=== PATIENT | female | born 1995 | race American Indian/Alaskan Native ===

== ENCOUNTER 2019-03-13 18:24 | Emergency (ER) | payer OTHER ==
[2019-03-13 20:04] VITALS: BP 124/91
--- NOTE | 2019-03-13 20:20 | Emergency Department Report ---
Chief Complaint: Urogenital-Female Stated Complaint: IRRITATION WHEN URINATING Time Seen by Provider: 03/13/19 20:19 - HPI History of Present Illness: dysuria non toxic - Exam Vital Signs: Vital Signs 03/13/19 20:02 Temperature 98.1 F Pulse Rate 92 H Respiratory 18 Rate Blood Pressure 124/91 O2 Sat by Pulse 99 Oximetry MSE screening note: Focused history and physical exam performed. Due to findings the following was ordered: ED Disposition for MSE Condition: Stable
[2019-03-13 20:35] LABS: Bacteria,Urine 1+ /HPF (Negative); Bilirubin,Urine NEG (Negative); Blood,Urine SM (Negative); Color,Urine Yellow (Yellow); Mucus,Urine FEW /HPF; Protein,Urine <15 mg/dL mg/dL (Negative); Sperm,Urine FEW /HPF (NP); Urobilinogen,Urine < 2.0 mg/dL (<2.0)
--- NOTE | 2019-03-13 23:40 | Emergency Department Report ---
ED Female HPI - General Chief complaint: Urogenital-Female Stated complaint: IRRITATION WHEN URINATING Time Seen by Provider: 03/13/19 20:19 Source: patient Mode of arrival: Ambulatory Limitations: No Limitations - History of Present Illness MD Complaint: dysuria -: Gradual Radiation: non-radiating Severity: mild Consistency: constant Improves with: none Worsens with: none Are you Now?: No Associated Symptoms: denies: abdominal pain, nausea/vomiting, loss of appetite, dysuria, hematuria, rash, syncope, weakness - Related Data Sexually active: No Previous Rx's Medication Instructions Recorded Last Taken Type Butalb/Acetaminophen/Caffeine 1 cap PO Q8HR PRN #20 cap 09/14/18 Unknown Rx [Fioricet 50-300-40 mg CAP] metroNIDAZOLE [Flagyl] 500 mg PO Q12HR #14 tab 09/14/18 Unknown Rx Fluconazole [Diflucan] 150 mg PO ONCE #3 tablet 03/13/19 Unknown Rx Nitrofurantoin Monohyd/M-Cryst 100 mg PO BID #20 capsule 03/13/19 Unknown Rx [Macrobid 100 mg Capsule] Phenazopyridine [Pyridium] 200 mg PO BID PRN #10 tab 03/13/19 Unknown Rx Allergies Allergy/AdvReac Type Severity Reaction Status Date / Time No Known Allergies Allergy Verified 03/13/19 18:28 ED Review of Systems ROS: Stated complaint: IRRITATION WHEN URINATING Other details as noted in HPI Constitutional: denies: chills, fever Eyes: denies: eye pain, eye discharge, vision change ENT: denies: ear pain, throat pain Respiratory: denies: cough, shortness of breath, wheezing Cardiovascular: denies: chest pain, palpitations Endocrine: no symptoms reported Gastrointestinal: denies: abdominal pain, nausea, diarrhea Genitourinary: urgency, dysuria. denies: discharge Musculoskeletal: denies: back pain, joint swelling, arthralgia Skin: denies: rash, lesions Neurological: denies: headache, weakness, paresthesias Psychiatric: denies: anxiety, depression Hematological/Lymphatic: denies: easy bleeding, easy bruising ED Past Medical Hx - Past Medical History Previous Medical History?: No - Surgical History Past Surgical History?: No - Social History Smoking Status: Never Smoker Substance Use Type: Alcohol - Medications Home Medications: Home Medications Medication Instructions Recorded Confirmed Last Taken Type Butalb/Acetaminophen/Caffeine 1 cap PO Q8HR PRN #20 cap 09/14/18 Unknown Rx [Fioricet 50-300-40 mg CAP] metroNIDAZOLE [Flagyl] 500 mg PO Q12HR #14 tab 09/14/18 Unknown Rx Fluconazole [Diflucan] 150 mg PO ONCE #3 tablet 03/13/19 Unknown Rx Nitrofurantoin Monohyd/M-Cryst 100 mg PO BID #20 capsule 03/13/19 Unknown Rx [Macrobid 100 mg Capsule] Phenazopyridine [Pyridium] 200 mg PO BID PRN #10 tab 03/13/19 Unknown Rx ED Physical Exam - General Limitations: No Limitations General appearance: alert, in no apparent distress - Head Head exam: Present: atraumatic, normocephalic - Eye Eye exam: Present: normal appearance, PERRL, EOMI Pupils: Present: normal accommodation - ENT ENT exam: Present: normal exam, mucous membranes moist - Neck Neck exam: Present: normal inspection, full ROM - Respiratory Respiratory exam: Present: normal lung sounds bilaterally. Absent: respiratory distress, chest wall tenderness, accessory muscle use - Cardiovascular Cardiovascular Exam: Present: regular rate, normal rhythm. Absent: systolic murmur, diastolic murmur, rubs, gallop - GI/Abdominal GI/Abdominal exam: Present: soft, normal bowel sounds - Extremities Exam Extremities exam: Present: normal inspection - Back Exam Back exam: Present: normal inspection - Neurological Exam Neurological exam: Present: alert, oriented X3 - Psychiatric Psychiatric exam: Present: normal affect, normal mood - Skin Skin exam: Present: warm, dry, intact, normal color. Absent: rash ED Course Vital Signs 03/13/19 03/13/19 20:02 23:49 Temperature 98.1 F Pulse Rate 92 H 85 Respiratory 18 16 Rate Blood Pressure 124/91 O2 Sat by Pulse 99 100 Oximetry Critical care attestation.: If time is entered above; I have spent that time in minutes in the direct care of this critically ill patient, excluding procedure time. ED Disposition Clinical Impression: UTI (urinary tract infection), Yeast infection Disposition: - TO HOME OR SELFCARE Is pt being admited?: No Does the pt Need Aspirin: No Condition: Stable Instructions: Vulvovaginal Candidiasis (ED), Dysuria (ED) Prescriptions: Fluconazole [Diflucan] 150 mg PO ONCE #3 tablet Nitrofurantoin Monohyd/M-Cryst [Macrobid 100 mg Capsule] 100 mg PO BID #20 capsule Phenazopyridine [Pyridium] 200 mg PO BID PRN #10 tab PRN Reason: dysuria Referrals: [facility] MD THERESA [Primary Care Provider] - 3-5 Days Forms: Work/School Release Form(ED)
== END 2019-03-13 23:50 | disposition home or self-care (01) ==
LOC: ED 18:24
DX: N39.0 Urinary tract infection, site not specified (principal); B37.9 Candidiasis, unspecified
CPT/HCPCS: 81001